=== PATIENT | male | born 1980 | race Caucasian/White ===

== ENCOUNTER 2018-02-26 19:59 | Emergency (ER) | payer OTHER ==
[~2018-02-26] VITALS: Ht 177.8 cm; Wt 77.1 kg
== END 2018-02-26 23:56 | disposition home or self-care (01) ==
LOC: ER 19:59
DX: M54.5 Low back pain (principal)

== ENCOUNTER 2018-10-08 19:28 | Emergency (ER) | payer OTHER ==
[~2018-10-08] VITALS: Ht 180.3 cm; Wt 79.4 kg
== END 2018-10-09 00:49 | disposition home or self-care (01) ==
LOC: ER 19:28
DX: K52.9 Noninfective gastroenteritis and colitis, unspecified (principal)

== ENCOUNTER 2019-07-02 08:50 | Emergency (ER) | payer OTHER ==
[~2019-07-02] VITALS: Ht 175.3 cm; Wt 76.2 kg
== END 2019-07-02 10:12 | disposition home or self-care (01) ==
LOC: ER 08:50
DX: M62.830 Muscle spasm of back (principal)

== ENCOUNTER 2020-11-06 13:30 | Emergency (ER) | payer OTHER ==
[~2020-11-06] VITALS: Ht 180.3 cm; Wt 83.0 kg
[2020-11-06] MEDS ORDERED: KETO10TA2 PO (15:25)
[2020-11-06] MEDS ORDERED: NORFLEX100MG PO (15:25)
== END 2020-11-06 15:56 | disposition home or self-care (01) ==
LOC: ER 13:30
DX: M54.5 Low back pain (principal)

== ENCOUNTER 2022-06-04 08:36 | Emergency (ER) | payer OTHER | END 2022-06-04 11:33 | disposition home or self-care (01) | LOC: ER 08:36 | DX: B34.9 Viral infection, unspecified (principal); R19.7 Diarrhea, unspecified; Z20.822 Contact with and (suspected) exposure to COVID-19 ==

== ENCOUNTER 2022-06-06 19:41 | Emergency (ER) | payer OTHER ==
[~2022-06-06] VITALS: Ht 180.3 cm; Wt 79.4 kg
[~2022-06-06 19:41] MED LIST: KETO10TA2 PO; NORFLEX100MG PO
[2022-06-06] MEDS ORDERED: TYLENOL325 MG PO (20:19)
[2022-06-06] MEDS ORDERED: NABUMETONE750 MG PO (21:03)
[2022-06-06] MEDS ORDERED: CYCLOBENZAPRINE10 MG PO (21:03)
[2022-06-06] MEDS ORDERED: DECADRON4 MG PO (21:03)
== END 2022-06-06 22:39 | disposition home or self-care (01) ==
LOC: ER 19:41
DX: M54.2 Cervicalgia (principal)